=== PATIENT | female | born 1995 | race Caucasian/White ===

== ENCOUNTER → 2017-07-05 | Day surgery (SDC) | payer OTHER ==
[~2017-07-05] VITALS: Ht 152.4 cm; Wt 48.7 kg
[~2017-07-05] MED LIST: CeFAZolin Inj 2 GM in IV Premix 1 EACH IV SCH; Dexamethasone 4 mg/mL Inj IM ONE; Dexamethasone 4 mg/mL Inj IVPUSH PRN; EPHEDrine Sulfate 50 mg/mL Inj IVPUSH PRN; HYDROmorphone 1 mg/mL Inj IVPUSH PRN; Lactated Ringer's 1,000 ML IV SCH; Lactated Ringer's 500 ML IV PRN; Lidocaine 1%-Epi 1:100,000 20 mL Inj NERVEBLOCK ONE; MULT-666 PO; MetoCLOpramide 5 mg/mL 2 mL Inj IVPUSH PRN; OXYC-407 PO; OXYC1TAB24 PO; Ondansetron 2 mg/mL 2 mL Inj IVPUSH PRN; Phenylephrine 10,000 mCg/mL Inj IVPUSH PRN; Propofol 10,000 mCg/mL 20 mL Inj ONE; fentaNYL-PF 50 mCg/mL 2 mL Inj IVPUSH PRN; fentaNYL-PF 50 mCg/mL 2 mL Inj ONE
[2017-07-05] MEDS: Lactated Ringer's 1,000 ML IV SCH ×2 (05:35→07:28)
[2017-07-05 06:29] VITALS: BP 117/75; PULSE 89; RESP 16; O2SAT 100
--- NOTE | 2017-07-05 07:22 | PCM.HPANE ---
Patient Data Date of Service: Jul 05, 2017 Surgeon Admitting Provider: Attending Provider:Arpita Romo DPM Primary Care Physician:Ziyad Cabrera DO Other Provider:Kendall Miranda Anesthesia Reason for Visit Right Foot Foreign Body With Reactive Tissue Ht/WT & BMI Height (Feet): 5 Height (Inches): 0.00 Weight (Kilograms): 48.7 Body Mass Index 21.00 Allergies Coded Allergies: No Known Allergies (Unverified , 07/01/17) Past Anesthesia History Anesthesia History: Denies:: Abnormal Airway, Anesthesia Reactions, Difficult Intubation, Fam Anesthesia Reaction, Fam Malignant Hypertherm, Malignant Hyperthermia Diabetes History Hx Diabetes?: No MRSA MRSA: No Medications Home Meds Incl Beta Kemar: No Reported Medications Oxycodone HCl/Acetaminophen 5-325 (Endocet 5-325)1 Each Tablet1-2 Tablet PO Q4H PRN For Pain 07/01/17 Multivitamin (Once Daily)1 Each Tablet1 Each PO 07/01/17 Discontinued Scripts Naproxen (Naprosyn)500 Mg [id number] Mg PO BID PRN For Pain #14 TABLET Prov:Kolby Juarez MD 05/24/16 Cephalexin (Keflex)500 Mg [id number] Mg PO QID #28 CAPSULE Prov:Kolby Juarez MD 05/24/16 History History of ENT Problems?: No HEENT History: Denies:: Abnormal Airway Difficult Intubation Dysphagia Hearing Problem Sinus Problem TMJ Denture Type: None Teeth Condition: Within Normal Limits Hx of Heart Problems?: No Cardiovascular History: Denies:: Congestive Heart Failure Hypertension Hx of Respiratory Problem?: No Respiratory History: Denies:: Tuberculosis Hx Neurologic Problems?: No Neurological History: Denies:: Parkinson's Disease Hx of GI Problems?: No Hx of Problems?: No Female Hx: Denies:: Currently Skin History: Denies:: History Skin Disorders? Hx Musculoskeletal Problems?: No Hx of Psycho/Social Problems?: No Hx Surgeries?: Yes (wisdom teeth 2014, ) Hx Any Other Health Problems?: No Other History: Positive for:: Hospitalization (2014 PID) Denies:: Cancer Endocrine Disease Thyroid Disease History Blood Transfusions: Positive for:: Accept Blood Products? Denies:: Blood Transfusions Hx Diabetes: No Hx Alcohol Use: YesAlcoholic Drinks Per Day: 2 beers 2-3 times a weekHx Substance Use: No Smoking Status: Never Smoker Stop/Bang S-Snoring: Do You Snore Loudly: No T-Tired: feel tired, fatigued: No O-Obsered: Observed not breath: No P-Blood Pressure: treated: No B- Body Mass Index > 35 kg/m2: No A- Age over 50: No N- Neck Large Circumference: No G- Gender Male: No HERMANN Total Score: 0 HERMANN Risk Assessment: Low Risk, <3 Yes Risk Assessment Category Category 1A: Patient has history of documented sleep apnea, and HAS NOT received any narcotic, sedative or anesthesia administration during this stay. Category 1B: Patient has history of documented sleep apnea, and HAS received any narcotic , sedative or anesthesia administration during this stay Category 2: Patient has SUSPECTED Obstructive Sleep Apnea, and HAS received any narcotic , sedative or anesthesia administration during this stay. Category 3: Patient has SUSPECTED Obstructive Sleep Apnea and HAS NOT received narcotic, sedative or anesthesia administration during this stay. Category 4: Outpatient in Procedural Areas with known sleep apnea or who screen positive for High Risk via the STOP/BANG questionnaire. Exam Exam Vital Signs Vital Signs Date Time Temp Pulse Resp B/P Pulse Ox O2 Delivery O2 Flow Rate FiO2 07/05/17 06:29 36.0 89 16 117/75 100 Room Air General Appearance: Alert, Oriented X3, Cooperative, No Acute Distress HEENT/AIRWAY: MP 1 Lungs: Clear to Auscultation, Normal Air Movement Heart: Exam Unremarkable, Regular Rate/Rhythm, No Murmurs/Rubs/Gallops Meds/Labs/Diagnostics Admission Meds Current Medications Lactated Ringer's (Lr) 1,000 ml @ 120 mls/hr Q8H20M IV Last administered on t 05:35; Start 07/05/17 at 05:00; Stop 07/05/17 at 13:19 Plan Impression Patient chart reviewed, patient interviewed and anesthestic plan with risks, benefits, and alternatives discussed, and informed consent obtained. NPO per Anesth. Guidelines: Yes ASA Physical Status: ASA1 Normal Healthy Anesthetic Plan: GA Bene/Risks/Altern/Consents: Yes HP Complete Prior to Induction: Yes Virgil Tejeda MD Jul 05, 2017 07:22
[2017-07-05 08:15] VITALS: BP 96/71; PULSE 82; RESP 18; O2SAT 100
--- NOTE | 2017-07-05 08:17 | PCM.ANEP1 ---
Post Anesthesia PACU Phase 1 Assessment Date of Service: Jul 05, 2017 Vital Signs 36.5 96/71 69 18 100% RA Anesthetic Administered: MAC Level of Alertness: Awake, talking RAY's with Equal Strength: Yes Pain: No Pain Scale Score: 0 Nausea or Vomiting: No CV Function & Hydration Stable: Yes Airway Device: Oxygen Delivery: Room Air Lungs: Clear to Auscultation, Normal Air Movement Dermatome Level: Full Sensation PACU Phase 2 Assessment Complications: No Follow up Care: N/A Patient Instructions Provided: N/A Virgil Tejeda MD Jul 05, 2017 08:17
--- NOTE | 2017-07-05 08:32 | PCM.PODPO ---
Podiatry Operative Report Date of Service: Jul 05, 2017 Date of Service Jul 05, 2017 Pre Operative Diagnosis Retained foreign body, deep, with reactive soft tissue mass, right foot Post Operative Diagnosis Retained foreign body, deep, with reactive soft tissue mass, right foot Procedure Excision of deep retained foreign body, with reactive soft tissue mass, right foot Surgeon Surgeon: Arpita Romo DPM Assistants: None Indication for Procedure Retained, painful foreign body with inflammation. Findings Large straw-like foreign body removed. Encapsulated small nerve in excessive scar tissue overlying the foreign body. Three small nylon sutures removed. Details of Procedure The patient was identified in the preoperative holding area and brought back to the operating room. She was placed on the operating table in supine position. IV sedation was initiated and the time out protocol completed. The patient's name and site of surgery were confirmed. Her right foot was prepped and draped in the usual aseptic manner. Local anesthetic was administered, containing epinephrine in the incisional area only for hemostasis. No tourniquet was necessary. Bleeding vessels were cauterized as needed and neurovascular structures retracted where possible throughout the procedure. The incision was made over the dorsal aspect of the right foot, central to the existing soft tissue prominence. It was deepened bluntly and exuberant scar tissue encountered with reactive inflammatory tissue and fluid surrounding a foreign body. A straw-like 2mm wide and 2.2cm long foreign body was excised along with some nylon suture that was retained in the subcutaneous tissue. The scar tissue was excised in the area, the overlying small nerve branch was excised along with it due to encapsulation. Irrigation was performed with normal saline. The deep soft tissue and the skin were closed full thickness with Prolene to avoid any deep suture reaction. Dressing consisted of sterile silk, saline moistened gauze, Kerlix and lightly compressed Coban. The patient was weaned off of anesthesia and transported to Day Surgery with vital signs stable and vascular status to the operative foot intact. Grafts, Implants: None Complications There were no periprocedural complications identified. Condition Stable Anesthetic Administered: MAC Drains: None Catheters: None Output, Estimated Blood Loss: 5 (ml) Blood Admin during surgery: No Surgical Cast or Splint: Post-op Boot Surgical Specimen Removed: Yes Specimen sent to Pathology: No Post Operative Plan PO clindamycin for one week postop. Follow up next week for suture removal. Weightbearing as tolerated. Surgical dressing to stay in place at least two days , may be replaced with a large bandaid or gauze and tape at that time. Keep dry until sutures come out. Arpita Romo DPM Jul 05, 2017 08:31
[2017-07-05 09:04] VITALS: BP 109/61; PULSE 77; RESP 18; O2SAT 100
== END | disposition home or self-care (01) ==
LOC: SAS 06:04
PROVIDERS: ATTEND Podiatrist
DX: M79.5 Residual foreign body in soft tissue (principal); Z18.33 Retained wood fragments; G43.909 Migraine, unspecified, not intractable, without status migrainosus; F17.210 Nicotine dependence, cigarettes, uncomplicated
CPT/HCPCS: 28192; J0690; J1100; J2250; J2704; J3010; J7120